=== PATIENT | female | born 1995 | race Caucasian/White ===

== ENCOUNTER 2021-09-20 18:19 | Emergency (ER) | payer MEDICAID ==
[~2021-09-20] VITALS: Ht 157.5 cm; Wt 78.5 kg
[2021-09-20 18:33] VITALS: BP 123/82
--- NOTE | 2021-09-20 18:50 | NUR ---
PATIENT AMBULATED TO ED BED 12
--- NOTE | 2021-09-20 18:54 | NUR ---
25/F PRESENTS TO ED WITH C/O FATIGUE, WEAKNESS AND NAUSEA FOR "MONTHS." PATIENT DENIES RECENT COLD SYMPTOMS OR CONTACTS, STATES "I FEEL LIKE I HAVE ANEMIA, I HAVE ALL THE SYMPTOMS." PATIENT DENIES BEING DX WITH ANEMIA IN THE PAST, PATIENT REPORTS FEELING INTERMITTENT EPISODES OF NAUSEA AND FEELING EASILY WINDED WHEN WALKING LONG DISTANCE. PATIENT DENIES TAKING MEDICATION FOR SYMPTOMS. PATIENT DENIES V/D, CP OR URINARY SYMPTOMS.
--- NOTE | 2021-09-20 19:20 | NUR ---
Pt report given to ANGY RUBALCAVA. Transfer of care at this time.
--- NOTE | 2021-09-20 19:25 | NUR ---
pt is awake and alert. all needs met at this time
[2021-09-20 19:31] LABS: BASOPHILS # (AUTO) 0.1 K/uL (0.00-0.22); BASOPHILS % (AUTO) 0.7 % (0.0-2.0); EOSINOPHILS # (AUTO) 0.1 K/uL (0-0.4); EOSINOPHILS % (AUTO) 0.9 % (0.0-4.0); HEMATOCRIT 39.6 % (36-48); HEMOGLOBIN 13.3 g/dL (12.0-16.0); LYMPHOCYTES # (AUTO) 2.7 K/uL (2.5-16.5); LYMPHOCYTES % (AUTO) 31.5 % (20.5-51.1); MEAN CORPUSCULAR HEMOGLOBIN 30 pg (27-31); MEAN CORPUSCULAR HGB CONC 34 g/dL (33-37); MEAN CORPUSCULAR VOLUME 87.8 fL (80-94); MONOCYTES # (AUTO) 0.5 K/uL (0.8-1.0); MONOCYTES % (AUTO) 6.3 % (1.7-9.3); NEUTROPHILS # (AUTO) 5.3 K/uL (1.8-7.7); NEUTROPHILS % (AUTO) 60.6 % (42.2-75.2); PLATELET COUNT (AUTO) 253 K/uL (140-450); RED CELL DISTRIBUTION WIDTH 12.9 % (11.6-13.7); WHITE BLOOD COUNT (AUTO) 8.7 K/uL (4.8-10.8)
[2021-09-20 19:39] LABS: ANION GAP 10.8 (8-16); CARBON DIOXIDE 27.4 mmol/L (21-32); CREATININE 0.7 mg/dL (0.6-1.3); POTASSIUM 4.2 mmol/L (3.5-5.1)
[2021-09-20 20:38] VITALS: BP 108/68
--- NOTE | 2021-09-20 20:38 | NUR ---
Patient discharged with v/s stable. Written and verbal after care instructions given and explained. Patient verbalized understanding. Ambulatory with steady gait. All questions addressed prior to discharge. Advised to follow up with PMD.
== END 2021-09-20 20:45 | disposition home or self-care (01) ==
LOC: MED 18:19
DX: R53.83 Other fatigue (principal)
CPT/HCPCS: 36415; 80048; 81002; 81025; 85025; 99283

== ENCOUNTER 2022-02-18 10:12 | Emergency (ER) | payer MEDICAID ==
[~2022-02-18] VITALS: Ht 160 cm; Wt 49.9 kg
[2022-02-18 10:24] VITALS: BP 110/74
[2022-02-18] MEDS ORDERED: PROCHLORPERAZINE 10 MG/2 ML VIAL IM ONE (12:15)
[2022-02-18] MEDS ORDERED: KETOROLAC 30 MG/ML VIAL IM ONE (12:15)
[2022-02-18 12:47] LABS: BASOPHILS % (AUTO) 0.5 % (0.0-2.0); EOSINOPHILS # (AUTO) 0.1 K/uL (0-0.4); EOSINOPHILS % (AUTO) 1.2 % (0.0-4.0); HEMATOCRIT 41.9 % (36-48); HEMOGLOBIN 13.7 g/dL (12.0-16.0); LYMPHOCYTES # (AUTO) 1.9 K/uL (2.5-16.5); LYMPHOCYTES % (AUTO) 27.2 % (20.5-51.1); MEAN CORPUSCULAR HEMOGLOBIN 29 pg (27-31); MEAN CORPUSCULAR HGB CONC 33 g/dL (33-37); MEAN CORPUSCULAR VOLUME 87.8 fL (80-94); MONOCYTES # (AUTO) 0.5 K/uL (0.8-1.0); MONOCYTES % (AUTO) 6.8 % (1.7-9.3); NEUTROPHILS # (AUTO) 4.5 K/uL (1.8-7.7); NEUTROPHILS % (AUTO) 64.3 % (42.2-75.2); PLATELET COUNT (AUTO) 352 K/uL (140-450); RED BLOOD CELL COUNT(AUTO) 4.77 MIL/uL (4.20-5.40); RED CELL DISTRIBUTION WIDTH 13.3 % (11.6-13.7)
--- NOTE | 2022-02-18 13:00 | NUR ---
PT LAYING IN BED ANXIOUS. PT C/O HEAD PAIN. CONNECTED PT TO TELE MONITOR: SR 78. REBECA LUNGS CLEAR, RESP EVEN, UNLABORED, UPDATED ALL INFO, AWAITING TO BE RE-EVLUATED BY
[2022-02-18 13:14] LABS: ALBUMIN 4.1 g/dL (3.4-5.0); CARBON DIOXIDE 27.8 mmol/L (21-32); CREATININE 0.7 mg/dL (0.6-1.3); POTASSIUM 3.8 mmol/L (3.5-5.1); TOTAL BILIRUBIN 0.4 mg/dL (0.0-1.0)
[2022-02-18] MEDS ORDERED: ACET-10509 PO (13:49)
[2022-02-18] MEDS ORDERED: ONDA-188 PO (13:49)
[2022-02-18 14:13] VITALS: BP 121/70
== END 2022-02-18 14:13 | disposition home or self-care (01) ==
LOC: MED 10:12
DX: G43.909 Migraine, unspecified, not intractable, without status migrainosus (principal); M54.2 Cervicalgia
CPT/HCPCS: 36415; 80053; 81025; 85025; 96374; 96375; 99284; J0780; J1885

== ENCOUNTER 2022-12-09 08:51 | Emergency (ER) | payer MEDICAID ==
[~2022-12-09] VITALS: Ht 157.5 cm; Wt 52.2 kg
[~2022-12-09 08:51] MED LIST: ACET-10509 PO; ONDA-188 PO
[2022-12-09 09:15] VITALS: BP 101/69; PULSE 79; RESP 16; TEMP 97.5; O2SAT 97
[2022-12-09] MEDS ORDERED: SIMETHICONE 40 MG/0.6 ML PO ONE (09:55)
[2022-12-09] MEDS ORDERED: SIME80TA41 PO (10:01)
[2022-12-09] MEDS ORDERED: MAA30 PO (10:01)
[2022-12-09] MEDS ORDERED: BISM262C52 PO (10:01)
[2022-12-09 10:05] LABS: APPEARANCE,URINE CLEAR (CLEAR); BILIRUBIN,URINE NEGATIVE (NEGATIVE); BLOOD, URINE 2+ (NEGATIVE); COLOR,URINE YELLOW (YELLOW); LEUKOCYTE ESTERASE ,URINE NEGATIVE (NEGATIVE); NITRITE, URINE NEGATIVE (NEGATIVE); PROTEIN,URINE NEGATIVE (NEGATIVE); UGLUCOSE NEGATIVE (NEGATIVE); UROBILINOGEN,URINE 0.2 EU/dL (0.2 - 1)
[2022-12-09 10:21] LABS: BACTERIA,URINE FEW /HPF (None Seen); SQUAMOUS EPITHELIAL CELL,UR 4-10 (MOD) /LPF (0-3 (FEW)); WBC,URINE 0-5 /HPF (0-5)
[2022-12-09 10:44] VITALS: BP 101/69; PULSE 79; RESP 16; TEMP 97.5; O2SAT 97
== END 2022-12-09 10:44 | disposition home or self-care (01) ==
LOC: MED 08:51
DX: R10.13 Epigastric pain (principal); R14.0 Abdominal distension (gaseous); Z79.899 Other long term (current) drug therapy
CPT/HCPCS: 74021; 81001; 81025; 99284